=== PATIENT | female | born 1945 | race African-American/Black ===

== ENCOUNTER 2017-07-31 17:07 | Observation (INO) | payer OTHER ==
[2017-07-31] MEDS: LEVALBUTEROL (NEB) 1.25 MG/0.5 ML AMP INH (17:21)
[2017-07-31] MEDS: IPRATROPIUM (NEB) 0.5 MG/2.5 ML AMP INH (17:21)
[2017-07-31] MEDS: METHYLPREDNISOLONE 125 MG INJ IV (17:29)
[2017-07-31 17:36] LABS: ADD MAN DIFF? NO
[2017-07-31 17:39] LABS: BASOPHILS % 0.6 % (0.0-2.0); EOSINOPHILS # 0.2 10^3/ul (0.0-0.5); EOSINOPHILS % 2.7 % (0.0-7.0); HEMATOCRIT 39.3 % (37.0-47.0); HEMOGLOBIN 12.5 g/dl (12.0-16.0); LYMPHOCYTES # 4.6 10^3/ul (0.8-2.9); LYMPHOCYTES % 66.5 % (15.0-51.0); MEAN CORPUSCULAR HEMOGLOBIN 28.2 pg (29.0-33.0); MEAN CORPUSCULAR HGB CONC 31.8 g/dl (32.0-37.0); MEAN CORPUSCULAR VOLUME 88.7 fl (82.0-101.0); MEAN PLATELET VOLUME 10.5 fl (7.4-10.4); MONOCYTE # 0.6 10^3/ul (0.3-0.9); MONOCYTES % 9.1 % (0.0-11.0); NEUTROPHIL # 1.5 10^3/ul (1.6-7.5); PLATELET COUNT 239 10^3/UL (140-415); RED BLOOD COUNT 4.43 10^6/ul (4.20-5.40); RED CELL DISTRIBUTION WIDTH 13.2 % (11.5-14.5)
[2017-07-31 17:52] LABS: INR 0.88; PT RATIO 0.9
[2017-07-31 17:53] LABS: PARTIAL THROMBOPLASTIN TIME 25.8 Sec (25.0-35.0)
[2017-07-31 17:59] LABS: ALANINE AMINOTRANSFERASE 27 IU/L (13-69); ALBUMIN 3.9 g/dl (3.3-4.9); ALBUMIN/GLOBULIN RATIO 1.05; ALKALINE PHOSPHATASE 67 IU/L (42-121); ANION GAP 13 (8-16); ASPARTATE AMINO TRANSFERASE 23 IU/L (15-46); BILIRUBIN,INDIRECT 0.1 mg/dl (0-1.1); BILIRUBIN,TOTAL 0.1 mg/dl (0.2-1.3); BLOOD UREA NITROGEN 14 mg/dl (7-20); CALCIUM 8.5 mg/dl (8.4-10.2); CARBON DIOXIDE 31 mmol/L (21-31); CHLORIDE 104 mmol/L (97-110); GLUCOSE 122 mg/dl (70-220); POTASSIUM 3.2 mmol/L (3.5-5.1); SODIUM 145 mmol/L (135-144); TOTAL PROTEIN 7.6 g/dl (6.1-8.1)
[2017-07-31 18:25] LABS: TROPONIN-I < 0.012 ng/ml (0.00-0.12)
[2017-07-31 18:27] LABS: LACTIC ACID 2.2 mmol/L (0.5-2.0)
[2017-07-31] MEDS: LEVOFLOXACIN 750MG/D5W (PMX) 150 ML IVPB (19:15)
[2017-07-31] MEDS: POTASSIUM CHLORIDE 50 ML IVPB ×3 (19:39→23:56)
[2017-07-31] MEDS: LORAZEPAM 0.5 MG TAB PO (21:03)
[2017-07-31 21:41] LABS: LACTIC ACID 3.2 mmol/L (0.5-2.0)
[2017-07-31] MEDS: ALBUTEROL/IPRATROPIUM (NEB) 3 ML AMP HHN (21:45)
[2017-07-31] MEDS ORDERED: ONDANSETRON 4 MG TAB PO (22:00)
[2017-07-31] MEDS ORDERED: ZOLPIDEM 5 MG TAB PO (22:00)
[2017-07-31] MEDS ORDERED: DOCUSATE SODIUM 100 MG CAP PO (22:00)
[2017-07-31] MEDS ORDERED: NACL 0.9% 3 ML SYG IV (22:00)
[2017-07-31] MEDS: HYDROCODONE/APAP (5/325) TAB PO (23:56)
[2017-08-01] MEDS: hydrALAzine 20 MG INJ IV ×2 (00:12→06:20)
[2017-08-01] MEDS: FAMOTIDINE 20 MG TAB PO ×3 (00:17→09:17)
[2017-08-01] MEDS: ALBUTEROL/IPRATROPIUM (NEB) 3 ML AMP HHN ×3 (00:52→08:10)
[2017-08-01] MEDS: POTASSIUM CHLORIDE 50 ML IVPB (01:12)
[2017-08-01] MEDS: HYDROCODONE/APAP (5/325) TAB PO ×2 (04:48→09:17)
[2017-08-01] MEDS: morphine 2 MG INJ IV (07:23)
[2017-08-01] MEDS: NITROGLYCERIN 2% 1 GM OINT PKT TD (07:26)
[2017-08-01] MEDS: ENOXAPARIN 40 MG/0.4 ML SYG SC (09:00)
[2017-08-01] MEDS: METHYLPREDNISOLONE 40 MG INJ IV ×2 (09:00→09:17)
[2017-08-01 11:37] LABS: ADD MAN DIFF? NO
[2017-08-01 11:39] LABS: WHITE BLOOD COUNT 10.4 10^3/ul (4.8-10.8)
[2017-08-01 11:39] LABS: BASOPHILS % 0.1 % (0.0-2.0); HEMATOCRIT 36.8 % (37.0-47.0); LYMPHOCYTES # 1.5 10^3/ul (0.8-2.9); LYMPHOCYTES % 14.1 % (15.0-51.0); MEAN CORPUSCULAR HEMOGLOBIN 28.4 pg (29.0-33.0); MEAN CORPUSCULAR HGB CONC 32.6 g/dl (32.0-37.0); MEAN PLATELET VOLUME 10.8 fl (7.4-10.4); MONOCYTE # 0.4 10^3/ul (0.3-0.9); MONOCYTES % 3.8 % (0.0-11.0); NEUTROPHIL # 8.5 10^3/ul (1.6-7.5); NEUTROPHILS % 81.6 % (39.0-77.0); PLATELET COUNT 232 10^3/UL (140-415); RED BLOOD COUNT 4.23 10^6/ul (4.20-5.40); RED CELL DISTRIBUTION WIDTH 13.2 % (11.5-14.5)
[2017-08-01 12:11] LABS: ANION GAP 16 (8-16); BLOOD UREA NITROGEN 14 mg/dl (7-20); CARBON DIOXIDE 28 mmol/L (21-31); CHLORIDE 103 mmol/L (97-110); CREATININE 0.87 mg/dl (0.44-1.00); GLUCOSE 123 mg/dl (70-220); POTASSIUM 4.1 mmol/L (3.5-5.1); SODIUM 143 mmol/L (135-144)
== END 2017-08-01 12:00 | disposition left against medical advice (07) ==
LOC: E/R 17:07 → TEL 19:11
DX: J98.11 Atelectasis (principal); I51.7 Cardiomegaly; J44.9 Chronic obstructive pulmonary disease, unspecified; I10 Essential (primary) hypertension; E78.5 Hyperlipidemia, unspecified; Z86.73 Personal history of transient ischemic attack (TIA), and cerebral infarction without residual deficits
CPT/HCPCS: 36415; 71010; 80048; 80053; 83605; 84484; 85025; 85610; 85730; 87040; 87400; 93005; 94640; 94644; 94664; 96374; 96375; 99291-25; G0378